=== PATIENT | female | born 1995 | race Caucasian/White ===

== ENCOUNTER 2019-02-04 02:40 | Emergency (ER) | payer MEDICAID ==
[~2019-02-04] VITALS: Ht 157.5 cm; Wt 102.1 kg
[2019-02-04 02:42] VITALS: BP 130/78
--- NOTE | 2019-02-04 02:42 | NUR ---
TO BED # 11 AMBULATORY
--- NOTE | 2019-02-04 02:55 | NUR ---
CAME IN WITH C/O LEFT EAR PAIN, SINCE QING RADIATING TO MOUTH,
--- NOTE | 2019-02-04 03:33 | NUR ---
SEEN AND EXAMINED BY ALEXANDR LEOS AND CARRIED OUT.
[2019-02-04] MEDS ORDERED: CEPHALEXIN 500 MG CAP PO ONE (03:35)
[2019-02-04] MEDS ORDERED: oxyCODONE/APAP 5/325 MG 1 TAB TAB PO ONE (03:35)
[2019-02-04] MEDS ORDERED: KETOROLAC 60 MG/2 ML VIAL IM ONE (03:35)
--- NOTE | 2019-02-04 03:40 | NUR ---
MEDICATED PER [facility] ORDER, TOLERATED WELL.
[2019-02-04 04:00] VITALS: BP 130/78
--- NOTE | 2019-02-04 04:00 | NUR ---
Patient discharged with v/s stable. Written and verbal after care instructions given and explained. Patient alert, oriented and verbalized understanding of instructions. Ambulatory with steady gait. All questions addressed prior to discharge. ID band removed. Patient advised to follow up with PMD. Rx of NORCO, KEFLEX, given. Patient educated on indication of medication including possible reaction and side effects. Opportunity to ask questions provided and answered.
== END 2019-02-04 04:00 | disposition home or self-care (01) ==
LOC: MED 02:40
DX: K02.9 Dental caries, unspecified (principal)
CPT/HCPCS: 96372; 99283; J1885